=== PATIENT | male | born 2000 | race Two or more races ===

== ENCOUNTER 2024-11-29 13:03 | Emergency (ER) | payer OTHER ==
[~2024-11-29] VITALS: Ht 185.4 cm; Wt 154.2 kg
[2024-11-29] MEDS ORDERED: DEXAMETHASONE SODIUM PHOSPHATE 4 MG/ML VIAL IM ONE (15:30)
[2024-11-29] MEDS ORDERED: ORPHENADRINE CITRATE 30 MG/ML AMPUL IM ONE (15:30)
[2024-11-29] MEDS ORDERED: KETOROLAC TROMETHAMINE 60 MG VIAL IM ONE (15:30)
[2024-11-29] MEDS ORDERED: BACLOFEN10 MG PO (15:33)
[2024-11-29] MEDS ORDERED: DICLOFENAC SODI75 MG PO (15:33)
== END 2024-11-29 15:31 | disposition home or self-care (01) ==
LOC: ER 13:03
DX: M54.41 Lumbago with sciatica, right side (principal); J45.909 Unspecified asthma, uncomplicated; E66.01 Morbid (severe) obesity due to excess calories; Z91.013 Allergy to seafood